=== PATIENT | male | born 1995 ===

== ENCOUNTER 2016-12-03 03:05 | Emergency (ER) | payer OTHER ==
[2016-12-03] MEDS ORDERED: PREDNISONE 20 MG TAB PO ONE (03:25)
[2016-12-03] MEDS ORDERED: PREDNISONE 20 MG TAB ONE (03:41)
[2016-12-03 04:37] VITALS: BP 134/85; PULSE 120; RESP 20; TEMP 98.4; O2SAT 97
== END 2016-12-03 04:05 | disposition home or self-care (01) ==
LOC: ED 03:05
DX: M10.9 Gout, unspecified (principal)
CPT/HCPCS: 99282; 99283

== ENCOUNTER 2017-05-21 16:13 | Emergency (ER) | payer OTHER ==
[2017-05-21 16:24] VITALS: BP 160/96; PULSE 92; RESP 18; TEMP 98.6; O2SAT 100
== END 2017-05-21 17:08 | disposition home or self-care (01) ==
LOC: ED 16:13
DX: M10.9 Gout, unspecified (principal)
CPT/HCPCS: 99282